=== PATIENT | male | born 1945 | race Caucasian/White ===

== ENCOUNTER 2016-06-22 08:03 | Emergency (ER) | payer OTHER ==
[~2016-06-22] VITALS: Ht 180.3 cm; Wt 99.5 kg
[~2016-06-22 08:03] MED LIST: ASPEC81 PO; ATEN50TA8 PO; CLC100 PO; GEMF600T3 PO; GLC500 PO; HYDC25 PO; LRT5 PO; OMEG10007 PO; VERA240T20 PO; ZNTT/150 PO
[2016-06-22 08:06] VITALS: TEMP 36.3; Ht 180.3 cm; Wt 99.5 kg
[2016-06-22] MEDS ORDERED: SILVER NITR/POTASSIUM NITRATE 10 APPLICATOR PACK ONE (08:16)
[2016-06-22] MEDS ORDERED: CHOL100010 PO (08:30)
[2016-06-22] MEDS ORDERED: GLC/500 PO (08:30)
[2016-06-22] MEDS ORDERED: VERA120C3 PO (08:30)
[2016-06-22] MEDS ORDERED: SYN50 PO (08:30)
[2016-06-22] MEDS ORDERED: ATEN100T8 PO (08:30)
[2016-06-22] MEDS ORDERED: GEMF600T3 PO (08:30)
[2016-06-22] MEDS ORDERED: CZR25 PO (08:30)
[2016-06-22] MEDS ORDERED: NAPR1TAB9 PO (08:31)
[2016-06-22] MEDS ORDERED: ASPI81TA28 PO (08:31)
[2016-06-22 09:32] VITALS: BP 127/79; PULSE 47; O2SAT 98
--- NOTE | 2016-06-22 10:10 | EMERGENCY ROOM VISIT NOTE ---
ED Visit Note First contact with patient: 08:11 71-year-old male here with epistaxis was fully evaluated by Sean Youssef PA-C. Please see his note. I also independently evaluated the patient. The bleed was cauterized and the patient left without any further bleeding. IMPRESSION: Epistaxis
--- NOTE | 2016-06-22 17:58 | EMERGENCY ROOM VISIT NOTE ---
ED Visit Note First contact with patient: 08:11 CHIEF COMPLAINT: Nosebleed HISTORY OF PRESENT ILLNESS: This 71-year-old white male patient developed sudden onset of a nosebleed around 2:30 this morning. He states there was no trauma. It started bleeding while he was sleeping. He states he did have a bloody nose last week and saw his PCP. He states it was cauterized with silver nitrate. It continued to bleed after the cautery. He did use pressure this morning but it has continued to ooze. His accompanies him today. No recent upper respiratory symptoms. No difficulty breathing, no cough, no headache or sore throat. He believes the air at home may be dry. REVIEW OF SYSTEMS: Throat: No sore throat, dysphagia, or hoarseness. Neurological: No headache, new changes in mental status, vertigo, focal weakness, numbness. Cardiac: No chest pain, diaphoresis, dyspnea on exertion, orthopnea, pedal edema, or palpitations. Respiratory: No cough, change in sputum, wheezes, hemoptysis, shortness of breath, or stridor. General: No fever or chills, fatigue, loss of appetite, or significant recent weight gain or loss. PMH: Significant for diabetes and hypertension Previous surgeries: None Allergies: Doxycycline Current medications: Reviewed and filed in patient's chart Family history: Significant for diabetes and hypertension. Parents are . SOCIAL HISTORY: Patient lives at home with his . Retired. No tobacco use , no EtOH use. Afebrile. PHYSICAL EXAM: Vital Signs: Reviewed Nurse's notes. Afebrile. General appearance: The patient is sitting upright holding the nose. Alert and oriented. No acute distress. Skin: Warm and dry with good turgor. No rashes or lesions. No ecchymosis or erythema. The patient is not diaphoretic. No abrasions. HEENT: Normocephalic atraumatic. Eyes PERRLA, EOMI. No conjunctiva or scleral injection. Nares patent bilaterally without turbinate enlargement. Oropharynx without erythema or exudate. Uvula midline, oral mucosa moist. No lesions present. Exam of the nostrils reveals dried blood in both nares but active oozing in the left nares. This is coming from the anterior septum. Patient has visible cauterization done in the posterior left nares, but appears to have missed the current active site of bleeding. EMERGENCY DEPARTMENT COURSE: Option of additional chemical cautery was discussed with the patient. He is in agreement. Nasal clips were placed for several minutes to stem the bleeding. Dacron swabs were used to dry at the nostrils. Silver nitrate cautery was performed over Kiesselbach's plexus in both nares. No additional bleeding was noted. Bacitracin ointment was applied in each nostril. DIAGNOSIS: Recurrent Epistaxis DISCHARGE INSTRUCTIONS & TREATMENT: Patient was educated regarding today's findings. Conservative care measures were discussed. Informed oral consent was obtained to proceed with silver nitrate cautery. If bleeding should recur, apply Firm pressure on the nose for 15 minutes he was given repair of nasal clips. If you are unable to get it stopped after that, return to the emergency department for further exam and treatment. Blow the nose very gently if at all over the next 3 days. Don't put any objects into the nose. He will coat the inside of each nostril with bacitracin twice a day for the next 3 days. Follow- up with his PCP as needed. Return to the ED for any other concerns. He was reassured that I do not suspect septal perforation or posterior bleed at this point. Patient was seen in conjunction with Dr. Fung, who also evaluated the patient and concurred with today's diagnosis and treatment plan. Current/Historical Medications Scheduled Aspirin (Aspirin Ec), 81 MG PO DAILY Atenolol/Chlorthalidone (Tenoretic 100 Mg/25 Mg), 1 TAB PO DAILY Cholecalciferol (Vitamin D), 1,000 INTER.UNIT PO DAILY Fish Oil ([place]-3), 1,000 MG PO DAILY Gemfibrozil (Lopid), 600 MG PO BIDM Levothyroxine Sodium (Synthroid), 50 MCG PO QAM Losartan Potassium (Losartan Potassium), 25 MG PO DAILY Metformin Hcl (Glucophage), 500 MG PO BID Verapamil Hcl (Verapamil Hcl Sr), 120 MG PO DAILY Scheduled PRN Naproxen (Aleve), 220 MG PO DIRECTED PRN for Pain Allergies Coded Allergies: Doxycycline (Unverified Allergy, Unknown, VOMITING, 06/22/16) Uncoded Allergies: NKDA (Allergy, Unknown, NONE, 06/22/16) Vital Signs Date Time Temp Pulse Resp B/P Pulse Ox O2 Delivery O2 Flow Rate FiO2 06/22/16 09:32 47 18 127/79 98 06/22/16 08:06 36.3 96 18 150/86 96 Room Air Medications Administered Medications (Trade) Dose Ordered Sig/Zuri Route Start Time Stop Time Status Last Admin Dose Admin Silver Nitrate/ Potassium Nitrate (Silver Nitrate Applicators) 2 pkt STK-MED ONCE .ROUTE 06/22/16 08:16 06/22/16 08:19 DC 06/22/16 08:16 2 PKT Departure Information Impression Primary Impression: Recurrent epistaxis Dispostion Home / Self-Care Condition GOOD Forms WORK / SCHOOL INSTRUCTIONS, HOME CARE DOCUMENTATION FORM, IMPORTANT VISIT INFORMATION Patient Instructions Nosebleeds - [facility], [facility] Additional Instructions Avoid blowing your nose for the next 3 days Apply triple antibiotic ointment in each nostril 2 times a day for the next 3 days Use the nasal clips for 5-10 minutes and sit quietly, if bleeding should recur Return to the ED or follow-up with your PCP for any other concerns
== END 2016-06-22 09:34 | disposition home or self-care (01) ==
LOC: C.EDB 08:05 → C.EDA 09:34
DX: R04.0 Epistaxis (principal); I10 Essential (primary) hypertension; E11.9 Type 2 diabetes mellitus without complications